=== PATIENT | female | born 1955 | race African-American/Black ===

== ENCOUNTER → 2021-08-24 14:26 | Outpatient (CLI) | payer OTHER, SELFPAY ==
--- NOTE | ~2021-08-24 | XR_ITS ---
EXAMINATION: XR knee RT min 4V DATE: 08/24/2021 16:09 INDICATION: Right knee pain. TECHNIQUE: 4 views of right knee were obtained. COMPARISON: None. FINDINGS: Bone alignment is normal. No fracture. There is mild tricompartmental osteoarthritis charac terized by marginal osteophytes. No joint space narrowing. No knee joint effusion. IMPRESSION: 1. Mild right knee osteoarthritis. Reviewed, dictated and finalized at location A.
--- NOTE | ~2021-08-24 | XR_ITS ---
XR ankle RT min 3V DATE: 08/24/2021 16:09 INDICATION: Right ankle pain TECHNIQUE: 4 views COMPARISON: None FINDINGS: There is mild plantar and posterior calcaneal enthesopathy without associated erosive doran e or periostitis. No fracture or dislocation of the ankle or disruption of the ankle mortise. No periosteal reaction or bone destruction. IMPRESSION: Plantar and posterior calcaneal enthesopathy Reviewed, dictated and finalized at location A.
== END ==
PROVIDERS: PCP Family Medicine; Visit Provider Physician Assistant
DX: M25.561 Pain in right knee (principal); M25.571 Pain in right ankle and joints of right foot; M17.11 Unilateral primary osteoarthritis, right knee; M77.31 Calcaneal spur, right foot
CPT/HCPCS: 73564; 73610

== ENCOUNTER → 2022-09-03 08:34 | Outpatient (CLI) | payer MEDICARE, OTHER, SELFPAY ==
--- NOTE | ~2022-09-03 | XR_ITS ---
XR knee LT 3V 09/03/2022 09:38 Indication: Left knee pain Procedure: 3 views left knee Comparison: No prior studies for comparison. Findings: There is mild osteoarthritis of the left knee. No acute fracture or traumatic malalignment. No significant joint effusion. No focal soft tissue abnormality. No foreign bodies. Impression: 1: Mild osteoarthritis of the left knee. Reviewed, dictated and finalized at location L. Impression: 1: Mild osteoarthritis of the left knee.
== END ==
PROVIDERS: PCP Family Medicine; Visit Provider Physician Assistant
DX: M17.12 Unilateral primary osteoarthritis, left knee (principal)
CPT/HCPCS: 73562

== ENCOUNTER 2022-09-03 09:51 | Outpatient (CLI) | payer MEDICARE, SELFPAY ==
[2022-09-03 10:07] LABS: Basophils Percent Auto 0.3 % (0.2-1.2); Eosinophils Absolute Auto 0.2 K/mm3 (0-0.3); Eosinophils Percent Auto 3.3 % (0-4.4); Hematocrit 39.5 % (37.0-47.0); Hemoglobin 12.1 g/dL (12.0-15.0); Immature Granulocyte Absolute 0.01 K/mm3 (0.00-0.031); Immature Granulocyte Percent A 0.2 % (0-0.5); Lymphocytes Absolute Auto 1.83 K/mm3 (0.9-3.2); Lymphocytes Percent Auto 29.2 % (18.3-44.2); Mean Corpuscular HGB Conc 30.6 g/dl (32-36); Mean Corpuscular Hemoglobin 22.4 pg (26-34); Mean Platelet Volume 9.7 fl (7.4-10.4); Monocytes Absolute Auto 0.6 K/mm3 (0.1-0.6); Monocytes Percent Auto 9.1 % (2.6-8.5); Neutrophils Absolute Auto 3.6 K/mm3 (1.3-6.7); Neutrophils Percent Auto 57.9 % (45.5-73.1); Platelet Count Result 304 k/mm3 (150-375); Red Blood Count 5.41 M/mm3 (4.2-5.4); White Blood Count 6.3 K/mm3 (4.5-10.0)
[2022-09-03 10:29] LABS: Appearance Urine Cloudy (Clear); Bacteria Urine Rare /hpf; Bilirubin Urine Negative (Negative); Blood Urine Negative (Negative); Color Urine Yellow (Yellow); Glucose Urine UA Negative (Negative); Ketones Urine Negative (Negative); Leukocyte Esterase Ur Trace LEU/UL (NEGATIVE); Nitrate Urine Negative (Negative); Non Pathogenic Casts 0-2; Protein Urine Negative (Negative); RBC Urine 0-2 /hpf (0-2); Specific Grav Ur 1.021 (1.001-1.035); Squamous Epithelial Cell Urine Few /hpf (Few); Urobilinogen Urine 0.2 mg/dL (<2.0); WBC Urine 0-5 /hpf (0-3); pH Urine 7.5 (5.0-9.0)
[2022-09-03 10:31] LABS: Add Urine Microscopic? YES
[2022-09-03 10:31] LABS: Alanine Aminotransferase 20 U/L (6-35); Albumin Level 4.4 g/dL (3.5-5.1); Alkaline Phosphatase 64 U/L (38-126); Anion Gap 6 mmol/L (8-16); Aspartate Amino Transferase 23 U/L (14-36); Bilirubin,Total 0.6 mg/dL (0.2-1.3); Blood Urea Nitrogen 16 mg/dL (7-17); Calcium 9.2 mg/dL (8.4-10.2); Carbon Dioxide 32 mmol/L (22-30); Chloride 101 mmol/L (98-107); Cholesterol 191 mg/dL (0-200); Estimated Glomerular Filt Rate > 60; Glucose 94 mg/dL (65-110); HDL Direct 59 mg/dL; Potassium 4.6 mmol/L (3.4-5.0); Sodium 139 mmol/L (137-145); Triglycerides 52 mg/dL (<150)
[2022-09-03 10:42] LABS: LDL Cholesterol Direct 85 mg/dL
[2022-09-03 10:51] LABS: Platelet Estimate Adequate (Adequate)
[2022-09-03 10:52] LABS: Anisocytosis 1+ (NORMAL); Hypochromasia 1+ (NORMAL); Microcytosis 1+ (NORMAL); Schistocytes None Seen (NORMAL)
== END 2022-09-03 09:52 | disposition home or self-care (01) ==
PROVIDERS: PCP Family Medicine; Visit Provider Physician Assistant
DX: N32.81 Overactive bladder (principal); Z00.00 Encounter for general adult medical examination without abnormal findings
CPT/HCPCS: 36415; 80053; 80061; 81001; 84443; 85025

== ENCOUNTER 2022-12-03 02:30 | Day surgery (SDC) | payer MEDICARE, SELFPAY ==
[2022-11-21 08:00] VITALS: BMI 41.4
[2022-12-03 06:49] VITALS: BP 143/80; PULSE 72; RESP 18; TEMP 36.3; O2SAT 100
--- NOTE | 2022-12-03 07:00 | WPDANESEPPF ---
Anes - Initial Pre Proc Eval Procedure: Operation Date: 12/03/22 08:00 Proposed Procedures p Colonoscopy - Arslan Bernal MD Date/Time: 12/03/22 07:00 Surgeon: Arslan Bernal MD Pre Op Diagnosis: hx colon polyps, Patient Data Age: 67 Gender: F Height: 1.7 m Weight: 112.4 kg Last Vital Signs Temp 36.3 C L 12/03/22 06:49 Pulse 72 12/03/22 06:49 Resp 18 12/03/22 06:49 BP 143/80 H 12/03/22 06:49 Pulse Ox 100 12/03/22 06:49 O2 Del Method Room Air 12/03/22 06:49 Allergies Allergy/AdvReac Type Severity Reaction Status Date / Time latex Allergy Mild LATEX Verified 12/03/22 06:46 POWDER: ITCHING/REDNESS/BLISTERS amlodipine AdvReac Unknown headaches, Verified 12/03/22 06:46 SOB Home Medications Medication Instructions Recorded Confirmed Type aspirin 81 mg tablet,delayed 81 mg PO DAILY #30 tabs 07/29/19 12/03/22 Rx release tramadol 50 mg tablet 25 mg PO Q12H PRN pain #30 tabs 10/15/22 12/03/22 Rx hydrochlorothiazide 25 mg tablet 25 mg PO DAILY #90 tabs 10/30/22 12/03/22 Rx ibuprofen 600 mg tablet 600 mg PO Q6H PRN Pain 11/21/22 12/03/22 History oxybutynin chloride 5 mg 5 mg PO DAILY #30 tabs 11/29/22 12/03/22 Rx tablet,extended release 24 hr Patient hx anesthesia problems: none Family hx anesthesia problems: none Results Review: All pre-operative results and documents have been reviewed as part of the pre-operative evaluation. [facility] Past Medical History Medical History (Updated 12/03/22 @ 07:01 by Conrado Alegria MD) Cataract Essential hypertension History of stroke OAB (overactive bladder) Personal history of malignant neoplasm of breast Pre-operative clearance Urinary frequency Wellness examination Surgical History Surgical History History of mastectomy Family History Family History Mother Family history of osteoarthritis Father Family history of osteoarthritis Other Diabetes mellitus Social History Social History Smoking status: Never smoker Second hand tobacco smoke exposure: No Alcohol intake: never Substance use: never Substance use type: does not use Living arrangements: alone Occupation/Education: occupation Gender identity (if verbalized by the patient): Female Sexual Orientation (if Verbalized by the Patient): Straight or Heterosexual Spiritual care concerns: No Anes - Eval Final PreProcedure Day of Procedure 12/03/22 07:00 Patient weight: obese Heart: regular rate and rhythm Lungs: clear to auscultation and normal air movement Airway: Mallampati scale class II Neurological: alert and oriented Last oral intake: >/= 8 hours ASA classification: III Emergent: no Anesthetic plan: proceed Anesthesia type and monitoring: general GIVS Results Review: All pre-operative results and documents have been reviewed as part of the pre-operative evaluation. Informed Consent: The patient's anesthetic plan and its attendant risks and benefits were discussed with the patient/family/POA. Questions were solicited and answers provided to the satisfaction of the patient/family/POA.
[2022-12-03] MEDS: LACTATED RINGERS 1,000 ML 150 ML IV CONT (07:26)
--- NOTE | 2022-12-03 07:52 | PM.HPGS ---
History of Present Illness History of Present Illness Consent: Risks, benefits, and alternatives have been discussed and questions answered. Patient agrees to proceed with procedure. Chief complaint: hx colon polyps, Narrative: Val Moscoso is a 67 year old female with colon polyp in 2017 Review of Systems Constitutional: Constitutional: Denies headache(s) and Denies weakness Eyes: Eyes: Denies blurry vision ENT: Reports Normal hearing present, Denies headache(s) and Denies neck pain Cardiovascular: Cardiovascular: Denies chest pain and Denies dyspnea Respiratory: Respiratory: Denies dyspnea Gastrointestinal: Gastrointestinal: Reports no additional gastrointestinal complaints Genitourinary: Genitourinary: Denies dysuria Musculoskeletal: Musculoskeletal: Denies neck pain Integumentary/Breasts: Skin/Breast: Denies dry skin Neurologic: Reports Normal hearing present, Denies headache(s) and Denies weakness Psychiatric: Psychiatric: Denies anxiety Endocrine: Endocrine: Denies change in body appearance Hematologic/Lymphatic: Hematologic/Lymphatic: Denies easy bleeding Allergic/Immunologic: Allergic/Immunologic: Denies urticaria PMFSH Past Medical History Medical History (Updated 12/03/22 @ 07:53 by Arslan Bernal MD) Cataract Colon polyp Essential hypertension History of stroke OAB (overactive bladder) Personal history of malignant neoplasm of breast Pre-operative clearance Urinary frequency Wellness examination Surgical History Surgical History History of mastectomy Family History Family History Mother Family history of osteoarthritis Father Family history of osteoarthritis Other Diabetes mellitus Social History Social History Smoking status: Never smoker Second hand tobacco smoke exposure: No Alcohol intake: never Substance use: never Substance use type: does not use Living arrangements: alone Occupation/Education: occupation Gender identity (if verbalized by the patient): Female Sexual Orientation (if Verbalized by the Patient): Straight or Heterosexual Spiritual care concerns: No Meds Home Medications and Allergies Home Medications Medication Instructions Recorded Confirmed Type aspirin 81 mg tablet,delayed 81 mg PO DAILY #30 tabs 07/29/19 12/03/22 Rx release tramadol 50 mg tablet 25 mg PO Q12H PRN pain #30 tabs 10/15/22 12/03/22 Rx hydrochlorothiazide 25 mg tablet 25 mg PO DAILY #90 tabs 10/30/22 12/03/22 Rx ibuprofen 600 mg tablet 600 mg PO Q6H PRN Pain 11/21/22 12/03/22 History oxybutynin chloride 5 mg 5 mg PO DAILY #30 tabs 11/29/22 12/03/22 Rx tablet,extended release 24 hr Allergies Allergy/AdvReac Type Severity Reaction Status Date / Time latex Allergy Mild LATEX Verified 12/03/22 06:46 POWDER: ITCHING/REDNESS/BLISTERS amlodipine AdvReac Unknown headaches, Verified 12/03/22 06:46 SOB Vital Signs Vital Signs - 24 hr 12/03/22 06:49 Temperature 97.4 F L Pulse Rate 72 Respiratory Rate 18 Blood Pressure 143/80 H Pulse Oximetry 100 Oxygen Delivery Room Air Exam Const: General: comfortable and no acute distress HENMT: Face/Nose/Sinus: Normal nares present Eyes: General: appearance normal, both eyes and all related structures Neck: Neck: no JVD Resp: Auscultation: clear to auscultation bilaterally Cardio: Rate: regular rate Rhythm: regular rhythm GI: Inspection: non-distended GI Palp: Yes Soft to palpation Skin: General skin exam: normal color Neuro: General: gait normal Speech: normal speech Extrem: General: normal to inspection Psych: Mental Status: mental status grossly normal Assessment and Plan Assessment and plan (1) Colon polyp: Code(s): K63.5 - Polyp of colon Status: Acute Assess
[2022-12-03 08:11] VITALS: BP 129/71; PULSE 70; RESP 20; O2SAT 100
[2022-12-03 08:21] VITALS: BP 115/64; PULSE 64; RESP 20; O2SAT 98
[2022-12-03 08:31] VITALS: BP 130/66; PULSE 51; RESP 16; O2SAT 100
== END 2022-12-03 08:41 | disposition home or self-care (01) ==
PROVIDERS: PCP Family Medicine; Visit Provider Internal Medicine Gastroenterology
PROC: 0DJD8ZZ Inspection of Lower Intestinal Tract, Via Natural or Artificial Opening Endoscopic (ICD-10-PCS; CPT 45378; principal; 2022-12-03 08:00)
DX: Z12.11 Encounter for screening for malignant neoplasm of colon (principal); D12.8 Benign neoplasm of rectum; K64.8 Other hemorrhoids; I10 Essential (primary) hypertension; N32.81 Overactive bladder; Z86.73 Personal history of transient ischemic attack (TIA), and cerebral infarction without residual deficits; Z85.3 Personal history of malignant neoplasm of breast; Z79.82 Long term (current) use of aspirin; E66.9 Obesity, unspecified; Z68.38 Body mass index [BMI] 38.0-38.9, adult
CPT/HCPCS: 45385; 88305; J2704; J7120

== ENCOUNTER → 2022-12-31 09:47 | Outpatient (CLI) | payer MEDICARE, SELFPAY ==
--- NOTE | ~2022-12-31 | MR_ITS ---
EXAMINATION: MR knee LT wo con DATE: 12/31/2022 10:20 INDICATION: Left knee pain TECHNIQUE: Magnetic resonance imaging (MRI) of the left knee was performed without intravenous contra st. Sequences included coronal PD-weighted FSE, coronal PD-weighted FS FSE, sagittal T2-weighted FSE , sagittal PD-weighted FS FSE and axial PD weighted fat saturated FSE. COMPARISON: Left knee radiographs dated 09/03/2022 FINDINGS: Medial compartment: Complex tear of the body and posterior horn of the medial meniscus. There is medial extrusion of the medial meniscal body with chondral surface regularity along the medial tibial plateau and weightbeari ng medial femoral condyle resulting >50% joint space narrowing but without underlying cortical irregu larity or degenerative subchondral changes. Lateral compartment: Lateral meniscus is normal. Articular cartilage is normal. Patellofemoral compartment: There is some deep chondral fissuring with underlying cortical irregularity along the inferior margin of the medial trochlea. Ligaments and tendons: Anterior and posterior cruciate ligaments are normal. The medial collateral ligament and fibular aramis ateral ligament complex are normal. Mild distal quadriceps enthesopathy. Patellar tendon is normal. T he visualized medial and lateral hamstring tendons as well as the iliotibial band are normal. Fluid: Moderate to large left knee joint effusion with mild synovitis at the suprapatellar pouch. Small Bake r's cyst. No loose osteochondral bodies identified. Osseous/other: Normal marrow signal. No fracture or pathologic marrow replacing process. IMPRESSION: 1. Complex medial meniscal tear. 2. Mild to moderate osteoarthritis with extensive moderate grade chondromalacia medial compartment an d mild patellofemoral osteoarthritis with small region of high-grade chondral malacia the medial troc hlea. 3. Moderate to large left knee joint effusion and small Neely's cyst. Reviewed, dictated and finalized at location L. IMPRESSION: 1. Complex medial meniscal tear. 2. Mild to moderate osteoarthritis with extensive moderate grade chondromalacia medial compartment and mild patellofemoral osteoarthritis with small region of high-grade chondral malacia the medial trochlea. 3. Moderate to large left knee joint effusion and small Neely's cyst.
== END ==
PROVIDERS: PCP Orthopaedic Surgery; Visit Provider Orthopaedic Surgery
DX: S83.232A Complex tear of medial meniscus, current injury, left knee, initial encounter (principal); M17.12 Unilateral primary osteoarthritis, left knee; M22.42 Chondromalacia patellae, left knee; M71.22 Synovial cyst of popliteal space [Baker], left knee; M25.462 Effusion, left knee; T14.90XA Injury, unspecified, initial encounter
CPT/HCPCS: 73721

== ENCOUNTER → 2023-07-08 10:11 | Outpatient (CLI) | payer MEDICARE, SELFPAY ==
--- NOTE | ~2023-07-08 | XR_ITS ---
Clinical Indication: Cough PA and lateral views of the chest: Comparison: 03/02/2010 Findings: The lungs are clear, without evidence of focal consolidation or pleural effusion. Cardiome diastinal silhouette is stable. Bones and soft tissues are unremarkable. Impression: Clear lungs. Reviewed, dictated and finalized at location . 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
== END ==
PROVIDERS: PCP Physician Assistant; Visit Provider Physician Assistant
DX: R05.9 Cough, unspecified (principal); R06.2 Wheezing
CPT/HCPCS: 71046

== ENCOUNTER → 2023-07-28 15:36 | Outpatient (CLI) | payer MEDICARE, SELFPAY ==
--- NOTE | ~2023-07-28 | MM_ITS ---
EXAMINATION: MM screening daylin LT w isidoro HISTORY: Screening mammogram TECHNIQUE: Craniocaudal and mediolateral oblique 3-D tomosynthesis images were obtained and synthetic 2-D images were generated. CAD analysis was submitted and interpreted. COMPARISON: 12/17/2016 left mammogram BREAST PARENCHYMAL COMPOSITION: There are scattered areas of fibroglandular density. FINDINGS: Relatively stable multiple left axillary tail and axillary lymph nodes. Scattered occasiona l benign calcifications. There is no evidence of suspicious mass, calcification, or architectural dis tortion to suggest malignancy in either breast. There has been no suspicious interval change. IMPRESSION: 1. No mammographic evidence of malignancy. 2. Recommend routine screening mammography in one year. BI-RADS Category 2: Benign finding(s). Reviewed, dictated and finalized at location A. 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
== END ==
PROVIDERS: PCP Physician Assistant; Visit Provider Physician Assistant
DX: Z12.31 Encounter for screening mammogram for malignant neoplasm of breast (principal)
CPT/HCPCS: 77063; 77067

== ENCOUNTER 2023-12-04 10:36 | Outpatient (CLI) | payer MEDICARE, SELFPAY ==
[2023-12-04 11:12] LABS: Basophils Percent Auto 0.2 % (0.2-1.2); Eosinophils Absolute Auto 0.1 K/mm3 (0-0.3); Eosinophils Percent Auto 2.8 % (0-4.4); Hematocrit 40.9 % (37.0-47.0); Hemoglobin 12.8 g/dL (12.0-15.0); Immature Granulocyte Absolute 0.01 K/mm3 (0.00-0.031); Immature Granulocyte Percent A 0.2 % (0-0.5); Lymphocytes Absolute Auto 1.48 K/mm3 (0.9-3.2); Mean Corpuscular HGB Conc 31.3 g/dl (32-36); Mean Corpuscular Hemoglobin 22.7 pg (26-34); Mean Corpuscular Volume 72.6 fl (80-100); Monocytes Absolute Auto 0.4 K/mm3 (0.1-0.6); Monocytes Percent Auto 8.3 % (2.6-8.5); Neutrophils Absolute Auto 2.9 K/mm3 (1.3-6.7); Neutrophils Percent Auto 58.5 % (45.5-73.1); Platelet Count Result 253 k/mm3 (150-375); Red Blood Count 5.63 M/mm3 (4.2-5.4); White Blood Count 4.9 K/mm3 (4.5-10.0)
[2023-12-04 11:28] LABS: Alanine Aminotransferase 15 U/L (6-35); Albumin Level 4.3 g/dL (3.5-5.1); Alkaline Phosphatase 63 U/L (38-126); Anion Gap 9 mmol/L (4-12); Aspartate Amino Transferase 23 U/L (14-36); Bilirubin,Total 0.7 mg/dL (0.2-1.3); Blood Urea Nitrogen 21 mg/dL (7-17); Calcium 9.2 mg/dL (8.4-10.2); Carbon Dioxide 31 mmol/L (22-30); Chloride 99 mmol/L (98-107); Cholesterol 207 mg/dL (0-200); Estimated Glomerular Filt Rate > 60; Glucose 92 mg/dL (65-110); HDL Direct 77 mg/dL; Potassium 4.3 mmol/L (3.4-5.0); Sodium 139 mmol/L (137-145); Triglycerides 66 mg/dL (<150)
[2023-12-04 11:39] LABS: LDL Cholesterol Direct 100 mg/dL
== END 2023-12-04 10:37 | disposition home or self-care (01) ==
PROVIDERS: PCP Family Medicine; Visit Provider Physician Assistant
DX: E66.01 Morbid (severe) obesity due to excess calories (principal); I10 Essential (primary) hypertension; N32.81 Overactive bladder; Z00.00 Encounter for general adult medical examination without abnormal findings; Z85.3 Personal history of malignant neoplasm of breast; Z86.73 Personal history of transient ischemic attack (TIA), and cerebral infarction without residual deficits
CPT/HCPCS: 36415; 80053; 80061; 84443; 85025

== ENCOUNTER 2023-12-20 10:32 | Observation (INO) | payer MEDICARE, SELFPAY ==
[2023-12-20] VITALS (12 sets, daily range): BP systolic 102–154; BP diastolic 53–93; PULSE 50–83; RESP 12–18; TEMP 36.5–36.9; O2SAT 99–100; BMI 41.2
--- NOTE | ~2023-12-20 | MR_ITS ---
MR brain/brain stem wo con Ordering provider: Alessandro Cardenas MD History: 68 years Female with . slurred speech, tingling left arm . Comparison: CT head performed yesterday. Technique: MRI brain was performed without contrast. FINDINGS: BONES: Normal. CRANIOCERVICAL JUNCTION: normal. PITUITARY: Normal. MAJOR INTRACRANIAL VESSELS: Normal flow void. OPTIC NERVES AND CRANIAL NERVES VII AND VIII COMPLEXES: Grossly normal. BRAIN PARENCHYMA AND CSF SPACES: Few scattered foci of T2 and FLAIR hyperintense signal areas suggest lilly of deep white matter ischemic changes versus white matter disease. The cerebellum is normal. No a cute or chronic intracranial hemorrhage. No extra axial fluid collections. Diffusion weighted and ADC mapping images reveal focal area of diffusion restriction in the left inferior pontine suggestive o f acute lacunar infarct.. No midline shift or mass effect. PARANASAL SINUSES: Normal. MASTOIDS: Normal SUPERFICIAL/SURROUNDING SOFT TISSUES: Normal. IMPRESSION: Highly suggestive acute lacunar infarct in the left inferior estelle. Clinical correlation advised. Few scattered T2 and FLAIR hyperintense signal areas in the supratentorial area suggestive of deep wh ite matter ischemic changes versus white matter disease. Physician: Alessandro Cardenas MD Was notified with the result of the patient at 3:19 PM on December 21, 2023. Reviewed, dictated and finalized at location A. IMPRESSION: Highly suggestive acute lacunar infarct in the left inferior estelle. Clinical cor relation advised. Few scattered T2 and FLAIR hyperintense signal areas in the supratentorial area suggestive of deep white matter ischemic changes versus white matter disease. Physician: Alessandro Cardenas MD Was notified with the result of the patient at 3:19 PM on December 21, 2023.
--- NOTE | ~2023-12-20 | XR_ITS ---
EXAMINATION: XR chest 1V 12/20/2023 12:51 INDICATION: Chest pain PROCEDURE: PA view of the chest COMPARISON: 07/08/2023 FINDINGS: The lungs are clear. The cardiomediastinal silhouette is within normal limits. There are no pleural effusions. There is no pneumothorax suspected. IMPRESSION: 1: NO ACUTE CARDIOPULMONARY DISEASE. Reviewed, dictated and finalized at location B.
--- NOTE | ~2023-12-20 | CT_ITS ---
EXAMINATION: CT BRAIN W/O DATE: 12/20/2023 12:45 INDICATION: History of TIA. CVA. Left arm tingling. TECHNIQUE: Computed tomography (CT) of the head was performed without intravenous contrast. The dose- length product was 605.33 mGy-cm. Automated exposure control and iterative reconstruction technique were employed. COMPARISON: CT dated 01/04/2013 FINDINGS: Normal brain parenchymal volume for age. Normal lópez-white differentiation. No acute intrac ranial hemorrhage, infarction, mass or mass effect. There are scattered mild periventricular and subc ortical white matter changes, most likely related to small vessel ischemic disease (microangiopathy). No ventriculomegaly or midline shift. Midline sagittal images demonstrate a normal corpus callosum, c raniovertebral junction and sella turcica. Basilar cisterns are patent. Paranasal sinuses and mastoids are pneumatized. No depressed skull fractures. IMPRESSION: 1. No acute intracranial abnormality. Reviewed, dictated and finalized at location B.
--- NOTE | ~2023-12-20 | CT_ITS ---
CTA brain carotid Ordering provider: Ricardo Cristobal MD History: . LUE tingling . Comparison: None. Technique: CT angiogram head and neck was performed following timed intravenous injection of contrast . Thin slice axial images and reformatted coronal images were obtained. Three dimensional reformatted images of the brain were also obtained using a [employer] workstation. Radiation reduction technique ut ilized. DLP is 1030.95 mGy-cm. 100 mL Omnipaque 350 was given IV. FINDINGS: HEAD: --ANTERIOR AND MIDDLE CEREBRAL ARTERIES AND BRANCHES: Normal caliber and contour. --INTERNAL CAROTID ARTERIES: Mild atheromatous disease but no significant stenosis. No occlusion. --BASILAR ARTERY AND BRANCHES: Normal caliber and contour. No atheromatous disease. --POSTERIOR CEREBRAL ARTERIES: Normal caliber and contour --POSTERIOR COMMUNICATING ARTERIES: Both are visualized. --ANEURYSM: None visualized. --BRAIN: Please refer to report of CT head performed the same day. --BONES AND SUPERFICIAL SOFT TISSUES: Please refer to report of CT head performed the same day. --PARANASAL SINUSES AND MASTOIDS: Please refer to report of CT head done the same day. NECK: --RIGHT CERVICAL CAROTID SYSTEM: Normal caliber and contour. Percent stenosis per NASCET criteria is 0%. No carotid dissection. Otherwise, no significant atheromatous disease or stenosis of the cervica l carotid system. --LEFT CERVICAL CAROTID SYSTEM: Normal caliber and contour. Percent stenosis per NASCET criteria is 0%. No carotid dissection. Otherwise, no significant atheromatous disease or stenosis of the cervical carotid system. --VERTEBRAL ARTERIES: Normal caliber and contour. --VISUALIZED AORTIC ARCH AND BRANCHING VESSELS: Normal caliber and contour. No significant atheromato us disease. Bovine origin of both carotid arteries is seen. --SOFT TISSUES: Multiple thyroid nodules. --CERVICAL SPINE: Age appropriate degenerative changes. IMPRESSION: 1. Normal CTA head and neck. Percent stenosis per NASCET criteria is 0%. Reviewed, dictated and finalized at location A.
--- NOTE | ~2023-12-20 | MR_ITS ---
MRI of the cervical spine Clinical History: Infarct Technique: Axial T2-weighted and gradient images, and sagittal T1-weighted, T2-weighted, and STIR brendan ges were acquired. Findings: There is straightening of the normal cervical lordosis. No fracture or sublocation seen. No suspicious bone marrow signal reality seen. At C2-C3, there is no disc bulge or herniation. No spinal canal stenosis, cord compression, or neural foraminal narrowing. At C3-C4, there is mild degenerative disc narrowing. There is minimal disc bulge. Probable mild canal stenosis without anita cord compression. There is mild bilateral neural foraminal narrowing with mil d facet arthropathy. At C4-C5, there is moderate degenerative disc narrowing. There is mild disc ossify complex with mild canal stenosis and flattening of the ventral cord. Possible minimal bilateral neural foraminal narrow ing. At C5-C6, there is disc osteophyte complex. There is mild canal stenosis without anita cord compressi on. There is right neural foraminal narrowing. Left neural foramen preserved. At C6-C7, there is minimal disc bulge. No spinal canal stenosis, cord compression, or definite neural foraminal narrowing. No abnormal signal seen in the spinal cord. Paravertebral soft tissues are unremarkable. Impression: Moderate degenerative spondylosis, as above. Reviewed, dictated and finalized at location . Impression: Moderate degenerative spondylosis, as above.
--- NOTE | ~2023-12-20 | XR_ITS ---
XR shoulder LT min 2V 12/20/2023 12:51 INDICATION: Left shoulder pain PROCEDURE: 4 views left shoulder COMPARISON: No prior studies for comparison. FINDINGS: Fracture, dislocation or subluxation is not identified. The soft tissues appear within norm al limits. No foreign bodies are identified. IMPRESSION: 1: NO ACUTE BONE OR JOINT ABNORMALITY IDENTIFIED. Reviewed, dictated and finalized at location B.
--- NOTE | 2023-12-20 12:19 | ECG_ITS ---
Test Date: 2023-12-20 13:31:52 Measurements Intervals [place] Rate: 63 P: 53 NE: 237 QRS: -2 QRSD: 92 T: -3 QT: 431 QTc: 443 Interpretive Statements SINUS RHYTHM WITH SINUS ARRHYTHMIA WITH FIRST DEGREE AV BLOCK BORDERLINE ST-T WAVE ABNORMALITY- INFERIOR LEADS BORDERLINE ECG No previous ECG available for comparison Electronically Signed On 12-20-2023 19:31:44 CDT by Mohan Zhao D.O.
[2023-12-20] MEDS: ACETAMINOPHEN 500 MG TABLET 1000 MG PO (13:00)
[2023-12-20] MEDS: SODIUM CHLORIDE 0.9% IV 1,000 ML 999 ML IV CONT (13:00)
[2023-12-20 13:16] LABS: Basophils Percent Auto 0.3 % (0.2-1.2); Eosinophils Absolute Auto 0.2 K/mm3 (0-0.3); Eosinophils Percent Auto 3.6 % (0-4.4); Hematocrit 40.7 % (37.0-47.0); Hemoglobin 12.6 g/dL (12.0-15.0); Immature Granulocyte Absolute 0.02 K/mm3 (0.00-0.031); Immature Granulocyte Percent A 0.3 % (0-0.5); Lymphocytes Absolute Auto 1.94 K/mm3 (0.9-3.2); Lymphocytes Percent Auto 31.9 % (18.3-44.2); Mean Corpuscular Hemoglobin 22.6 pg (26-34); Mean Corpuscular Volume 73.1 fl (80-100); Mean Platelet Volume 9.7 fl (7.4-10.4); Monocytes Absolute Auto 0.6 K/mm3 (0.1-0.6); Monocytes Percent Auto 9.4 % (2.6-8.5); Neutrophils Absolute Auto 3.3 K/mm3 (1.3-6.7); Neutrophils Percent Auto 54.5 % (45.5-73.1); Platelet Count Result 273 k/mm3 (150-375); Red Blood Count 5.57 M/mm3 (4.2-5.4); Red Cell Distribution Width 16.7 % (11.5-14.5); White Blood Count 6.1 K/mm3 (4.5-10.0)
[2023-12-20 13:25] LABS: Prothrombin Time 13.5 Seconds (11.1-14.7)
[2023-12-20 13:26] LABS: Partial Thromboplastin Time 25.8 Seconds (22.3-36.8)
[2023-12-20 13:30] LABS: Alanine Aminotransferase 15 U/L (6-35); Albumin Level 4.5 g/dL (3.5-5.1); Alkaline Phosphatase 59 U/L (38-126); Anion Gap 9 mmol/L (4-12); Aspartate Amino Transferase 26 U/L (14-36); Bilirubin,Total 0.7 mg/dL (0.2-1.3); Blood Urea Nitrogen 15 mg/dL (7-17); Calcium 8.8 mg/dL (8.4-10.2); Carbon Dioxide 31 mmol/L (22-30); Chloride 98 mmol/L (98-107); Estimated CRCL calculation 87 ml/min; Estimated Glomerular Filt Rate > 60; Glucose 94 mg/dL (65-110); Potassium 3.4 mmol/L (3.4-5.0); Sodium 138 mmol/L (137-145)
[2023-12-20 13:41] LABS: Troponin I < 0.012 ng/mL (0.000-0.034)
[2023-12-20] MEDS: ASPIRIN 325 MG TABLET PO (14:29)
--- NOTE | 2023-12-20 15:53 | ED.EXTPRO ---
HPI - Extremity Problem General Chief complaint: Extremity Problem,Nontraumatic Stated complaint: L arm pain/tingling since 0300 Time Seen by Provider: 12/20/23 11:31 History of Present Illness HPI Narrative: This is a 68-year-old female with a past medical history including breast cancer and prior stroke/TIA with no residual deficits. Today patient presents to the emergency room with a chief complaint of sudden onset left upper extremity tingling sensation she describes as a numbness and tingling that began in her neck and radiates down to her fingertips. Patient states that this occurred about 3:00 a.m. over 8 hours prior to her initial arrival to the ED. patient states that she was in bed watching TV when she knows the sensation that started randomly. The sensations are without any traumatic injuries or any kind of falls. She states she had a similar sensation when she found her last stroke. She is not taking any blood thinner medications and is not on any anticoagulation presently aside from a baby aspirin. Denies any nausea, vomiting, vision changes, headache, chest pain, shortness of breath, extremity swelling, weakness, fatigue or syncope. Related Data Home Medications Medication Instructions Recorded Confirmed ibuprofen 600 mg tablet 600 mg PO Q6H PRN Pain 11/21/22 12/17/23 Allergies Allergy/AdvReac Type Severity Reaction Status Date / Time latex Allergy Mild LATEX Verified 12/04/23 09:35 POWDER: ITCHING/REDNESS/BLISTERS amlodipine AdvReac Unknown headaches, Verified 12/04/23 09:35 SOB Review of Systems Review of Systems: As reviewed above in the HPI [facility] Past Medical History Medical History Cataract Colon polyp Essential hypertension History of stroke Left knee pain OAB (overactive bladder) Personal history of malignant neoplasm of breast Pre-operative clearance Urinary frequency Wellness examination Surgical History Surgical History History of colonoscopy History of mastectomy Family History Family History Mother Family history of osteoarthritis Father Family history of osteoarthritis Hypertension Other Diabetes mellitus Social History Social History Smoking status: Never smoker Second hand tobacco smoke exposure: No Alcohol intake: never Substance use: never Substance use type: does not use Living arrangements: alone Occupation/Education: occupation Additional occupation/education comments: [employer] Gender identity (if verbalized by the patient): Female Sexual Orientation (if Verbalized by the Patient): Straight or Heterosexual Spiritual care concerns: No Exam Narrative: GENERAL: [Well-appearing, well-nourished, and in no acute distress.] HEAD: [Normocephalic, atraumatic.] EYES: [PERRLA and EOMI.] ENT: Nares clear, no rhinorrhea or epistaxis. Mucous membranes moist. NECK: Supple. CHEST: [Clear to auscultation. No respiratory distress.] HEART: [Regular rate and rhythm]. No murmur heard. [Normal peripheral pulses.] ABDOMEN: [Soft, nondistended], [nontender], [No rigidity or guarding] EXTREMITIES: Normal range of motion. [No edema.] SKIN: Warm, dry, no rash. NEURO: Subjective paresthesias in the left upper extremity without any weakness in the upper extremities. Marketing Development Specialist strength 5/5, flexion and extension at the elbows and shoulders is 5/5 bilaterally. Ambulating unassisted without any ataxia. Extraocular movements are full. Peripheral visual durant are full. NIH Stroke Scale of 1 for subjective paresthesias.. Alert and oriented [x3.] PSYCH: [Normal mood and affect.] Course Vital Signs Vital signs: Vital Signs Pulse Rate 51 L 12/20/23 13:25 Respiratory Rate 12 07/2
--- NOTE | 2023-12-20 17:47 | ADMGEN ---
This patient, Val Moscoso, was admitted to Medical Room 258-. Patient/family oriented to hospital policies and general routines including ID bracelet, bed and alarms, visiting hours, pain management, procedures, bathroom and other care routines, personal items, smoking policy, room service/diet, and visiting hours. Information on how to activate the Rapid Response Team has been discussed. Patient/Family are encouraged to report perceived risks to care and to ask questions if they do not understand what they are told or what they should do.
[2023-12-20] MEDS: ACETAMINOPHEN 325 MG TABLET 650 MG PO (18:35)
--- NOTE | 2023-12-20 23:00 | PM.IMHP ---
H&P: HPI History of Present Illness Date/Time: 12/20/23 23:00 Chief Complaint: Left arm numbness and tingling. Narrative: This is a very pleasant 68-year-old female with history of transient ischemic attack, hypertension, overactive bladder, and arthritis who presented to the emergency department for evaluation of left arm numbness and tingling. The patient provides the following history. The patient's little over a week ago and she has not been sleeping well. At about 02:00 this morning she was watching television when she developed fairly sudden onset of numbness and tingling in the left arm radiating down to the fingertips. She also noticed some stuttering and difficulty speaking while talking on the phone with a family member several hours thereafter. Due to ongoing symptoms he decided to come in for evaluation. At the time my evaluation she still has mild paresthesias but they have improved and her speech is back to normal. She denies vertigo, vision changes, facial droop, difficulty swallowing, focal weakness, chest pain, palpitations, and sensations of racing heart. She also denies fall and traumatic injuries of any kind. In the ED: Blood pressure was 144/76 on arrival and she was in a sinus rhythm with sinus arrhythmia. Labs are pretty unremarkable though her MCV was low at 73.1. Head CT showed no acute intracranial abnormality and CT of the head and neck was normal. Chest x-ray showed no acute cardiopulmonary disease. Left shoulder x-ray showed no abnormalities. She was given aspirin 325 mg and is admitted in this setting for further workup and neurology consultation. Review of Systems Review of Systems: 12 systems were reviewed and are negative except for as per HPI. [facility] Past Medical History Medical History (Updated 12/20/23 @ 23:35 by Gail Soto PA-C) Arthritis Cancer of right breast Colon polyp Essential hypertension Overactive bladder Surgical History Surgical History (Updated 12/20/23 @ 23:09 by Gail Soto PA-C) History of colonoscopy History of colonoscopy with polypectomy History of mastectomy History of right mastectomy Family History Family History Mother Family history of osteoarthritis Father Family history of osteoarthritis Hypertension Other Diabetes mellitus Social History Social History (Updated 12/20/23 @ 23:31 by Gail Soto PA-C) Social History: Surrogate medical decision maker: Cain Obrien, niece. Code status: Full code. Smoking status: Never smoker Second hand tobacco smoke exposure: No Alcohol intake: current Drinks per week: 2 Substance use: never Substance use type: does not use Do You Feel Safe in your Home?: Yes Lack of Transportation: No Lack of Food: Never True Current Housing: I Have Housing Concerned About Future Housing: No Difficulty Paying Gas/Electric Bills: No Difficulty Paying for Meds: No Currently Unemployed: No Education: High School Diploma/GED Difficulty w/ Childcare or Family Care: No Additional living arrangements comments: as of November 2023. Lives in [place]. Additional occupation/education comments: [employer]. Spiritual care concerns: No Meds Home Medications and Allergies Home Medications Medication Instructions Recorded Confirmed Type aspirin 81 mg tablet,delayed 81 mg PO DAILY #30 tabs 07/29/19 12/20/23 Rx release ibuprofen 600 mg tablet 600 mg PO Q6H PRN Pain 11/21/22 12/20/23 History hydrochlorothiazide 25 mg tablet 25 mg PO DAILY #90 tabs 12/04/23 12/20/23 Rx oxybutynin chloride 5 mg 5 mg PO DAILY 12/20/23 12/20/23 History tablet,extended release 24 hr Allergies Allergy/AdvReac Type Severity Reaction Status Date / Time latex Allergy Mild LATEX Verified 12/04/23 09:35 POWDER: ITCHING/REDNESS/BLISTERS amlodipine AdvReac Unknown headaches, Verified
[2023-12-21] VITALS (9 sets, daily range): BP systolic 123–144; BP diastolic 52–60; PULSE 45–76; RESP 16–18; TEMP 36.5–37; O2SAT 97
[2023-12-21] MEDS: MELATONIN 5 MG TABLET PO ×2 (00:03→20:58)
[2023-12-21 05:17] LABS: Hematocrit 35.5 % (37.0-47.0); Mean Corpuscular Hemoglobin 22.4 pg (26-34); Mean Corpuscular Volume 72.3 fl (80-100); Mean Platelet Volume 9.6 fl (7.4-10.4); Platelet Count Result 236 k/mm3 (150-375); Red Blood Count 4.91 M/mm3 (4.2-5.4); Red Cell Distribution Width 15.9 % (11.5-14.5); White Blood Count 5.1 K/mm3 (4.5-10.0)
[2023-12-21 05:32] LABS: Anion Gap 7 mmol/L (4-12); Blood Urea Nitrogen 11 mg/dL (7-17); Calcium 8.3 mg/dL (8.4-10.2); Carbon Dioxide 29 mmol/L (22-30); Chloride 100 mmol/L (98-107); Cholesterol 157 mg/dL (0-200); Estimated CRCL calculation 86 ml/min; Estimated Glomerular Filt Rate > 60; Glucose 87 mg/dL (65-110); HDL Direct 52 mg/dL; Iron 68 ug/dL (37-170); Potassium 3.1 mmol/L (3.4-5.0); Sodium 136 mmol/L (137-145); Triglycerides 77 mg/dL (<150)
[2023-12-21 05:42] LABS: Percent Iron Saturation 33 % (20-50)
[2023-12-21 05:43] LABS: LDL Cholesterol Direct 69 mg/dL
[2023-12-21 06:37] LABS: Folic Acid 8.6 ng/mL (2.76->20)
--- NOTE | 2023-12-21 08:14 | PM.IMPN ---
Progress Note: A&P Assessment and Plan (1) Arm paresthesia, left: Code(s): R20.2 - Paresthesia of skin Status: Acute (2) Transient speech disturbance: Code(s): R47.9 - Unspecified speech disturbances Status: Acute (3) Essential hypertension: Code(s): I10 - Essential (primary) hypertension Status: Acute (4) Low erythrocyte mean corpuscular volume: Code(s): R71.8 - Other abnormality of red blood cells Status: Acute Plan TIA vs acute Stroke The patient presented to the emergency department for evaluation of left upper extremity paresthesias and transient slurred and stuttering possibel TIA, CVA, and need to rule out cervical radiculopathy and musculoskeletal in etiology as she did complain of pain in the left neck and arm earlier today but that does not explain her speech disturbances pending Brain and cervical spine MRIs have been ordered, patient has claustrophobia, patient agreed to proceed MRI of brain with sedation of ativan pending echocardiogram with bubble study. Continue aspirin and check lipid panels in a.m c/w tele monitor Neurology has been consulted and their input is appreciated. Continue aspirin 81 mg daily p.o., Plavix 75 mg daily p.o. Essential hypertension Blood pressure controlled Subjective Date/time seen: 12/21/23 08:14 Interval history: I saw examined patient today, patient denies headache, focal weakness, vision change, slurred speech has resolved, patient is afebrile blood pressure stable Exam Narrative: GENERAL: Pleasant, in no acute distress. Well-nourished. - EYES: EOMI. Anicteric. - HENT: Moist mucous membranes. - LUNGS: Clear to auscultation bilaterally, no wheezing, rhonchi, or rales. - CARDIOVASCULAR: Regular rate and rhythm. No murmur. No JVD. - ABDOMEN: Soft, non-tender and non-distended. No palpable masses. - EXTREMITIES: No edema. Peripheral pulses 2+. Non-tender. - NEUROLOGIC: No focal neurological deficits. CN II-XII grossly intact. - PSYCHIATRIC: Awake, Alert and oriented x 3. Appropriate mood and affect. - SKIN: No rashes or lesions. Warm. - LYMPH: No cervical lymphadenopathy. Objective Data Vital Signs Vital Signs: Vital Signs - 24 hr 12/20/23 13:25 12/20/23 13:31 12/20/23 13:51 Temperature Pulse Rate 51 L 56 L 54 L Respiratory Rate 12 12 13 Blood Pressure 144/76 H 151/73 H 140/53 L Pulse Oximetry 100 100 100 Oxygen Delivery 12/20/23 14:01 12/20/23 14:21 12/20/23 14:31 Temperature Pulse Rate 61 63 63 Respiratory Rate 14 13 17 Blood Pressure 148/73 H 149/69 H 102/92 H Pulse Oximetry 100 100 100 Oxygen Delivery 12/20/23 15:00 12/20/23 15:11 12/20/23 17:00 Temperature Pulse Rate 78 74 50 L Respiratory Rate 15 17 16 Blood Pressure 138/93 H 139/85 154/87 H Pulse Oximetry 100 100 100 Oxygen Delivery 12/20/23 18:00 12/20/23 17:42 12/20/23 21:48 Temperature 97.7 F 98.4 F Pulse Rate 83 63 Respiratory Rate 18 18 Blood Pressure 150/69 H 130/65 Pulse Oximetry 100 99 Oxygen Delivery Room Air 12/20/23 20:00 12/20/23 21:15 12/21/23 00:04 Temperature Pulse Rate 58 L 71 Respiratory Rate Blood Pressure Pulse Oximetry Oxygen Delivery Room Air 12/21/23 04:00 12/21/23 06:00 Temperature 98.6 F Pulse Rate 45 L 52 L Respiratory Rate 16 Blood Pressure 123/52 L Pulse Oximetry 97 Oxygen Delivery Intake/Output Intake/Output: Intake & Output 12/18/23 12/19/23 12/20/23 12/21/23 23:59 23:59 23:59 23:59 Intake Total 1000 200 Balance 1000 200 Meds/Results Medications: Active Medications Generic Name Dose Route Start Last Admin Trade Name Freq PRN Reason Stop Dose Admin Acetaminophen 650 mg 12/20/23 18:10 12/20/23 18:35 Acetaminophen 325 Mg Tablet PO 650 mg Q6H PRN Administration Mild Pain (1-3) or Fever Hydrocodone Bitart/Acetaminophen 1 tab 12/20/23 18:10 Hydrocodone/Acetaminophen (*Crx) 5-325 Mg T
[2023-12-21] MEDS: ASPIRIN 81 MG ENTERIC TABLET PO (08:34)
[2023-12-21] MEDS: CLOPIDOGREL BISULFATE 75 MG TABLET PO (08:35)
[2023-12-21] MEDS: hydroCHLOROthiazide 25 MG TABLET PO (08:35)
[2023-12-21] MEDS: oxyBUTYnin CHLORIDE XL 5 MG TAB.ER.24 PO (08:35)
[2023-12-21] MEDS: LORazepam INJ (*CRX) 2 MG/ML VIAL 0.5 MG IV PUSH (13:19)
--- NOTE | 2023-12-21 13:42 | WPDNEURCNPN ---
Consult date: 12/21/23 HPI: Val Moscoso is a 68 year old female Admitted to the hospital through the emergency room with chief complaint of left upper extremity in tingling sensation and numbness originating in her cervical spine and radiating down to her finger tips with no history of trauma, she had the same symptomatology when she had the previous stroke and she was not taking any medications except the baby aspirin, she is she is taking only ibuprofen on p.r.n. basis and she is allergic to amlodipine and latex in the past she has had the hypertension, stroke, overactive bladder, malignant neoplasm of the breast, and has undergone mastectomy she is never a smoker, never alcohol intake or, initial exam in the emergency room was otherwise normal vital signs were normal CBC was normal so as the BMP and routine lab he was admitted to the hospital for the diagnosis of TIA, routine CBC was normal so as the BMP, head neck CTA was normal on shoulder x-rays normal, CT scan of the head negative PMFSH Past Medical History Medical History (Updated 12/20/23 @ 23:35 by Gail Soto PA-C) Arthritis Cancer of right breast Colon polyp Essential hypertension Overactive bladder Surgical History Surgical History (Updated 12/20/23 @ 23:09 by Gail Soto PA-C) History of colonoscopy History of colonoscopy with polypectomy History of mastectomy History of right mastectomy Family History Family History Mother Family history of osteoarthritis Father Family history of osteoarthritis Hypertension Other Diabetes mellitus Social History Social History (Updated 12/20/23 @ 23:31 by Gail Soto PA-C) Social History: Surrogate medical decision maker: Cain Obrien, niece. Code status: Full code. Smoking status: Never smoker Second hand tobacco smoke exposure: No Alcohol intake: current Drinks per week: 2 Substance use: never Substance use type: does not use Do You Feel Safe in your Home?: Yes Lack of Transportation: No Lack of Food: Never True Current Housing: I Have Housing Concerned About Future Housing: No Difficulty Paying Gas/Electric Bills: No Difficulty Paying for Meds: No Currently Unemployed: No Education: High School Diploma/GED Difficulty w/ Childcare or Family Care: No Additional living arrangements comments: as of November 2023. Lives in [place]. Additional occupation/education comments: [employer]. Spiritual care concerns: No Meds Home Medications and Allergies Home Medications Medication Instructions Recorded Confirmed Type aspirin 81 mg tablet,delayed 81 mg PO DAILY #30 tabs 07/29/19 12/20/23 Rx release ibuprofen 600 mg tablet 600 mg PO Q6H PRN Pain 11/21/22 12/20/23 History hydrochlorothiazide 25 mg tablet 25 mg PO DAILY #90 tabs 12/04/23 12/20/23 Rx oxybutynin chloride 5 mg 5 mg PO DAILY 12/20/23 12/20/23 History tablet,extended release 24 hr Allergies Allergy/AdvReac Type Severity Reaction Status Date / Time latex Allergy Mild LATEX Verified 12/04/23 09:35 POWDER: ITCHING/REDNESS/BLISTERS amlodipine AdvReac Unknown headaches, Verified 12/04/23 09:35 SOB Vital Signs Vital Signs - 24 hr 12/20/23 13:51 12/20/23 14:01 12/20/23 14:21 Temperature Pulse Rate 54 L 61 63 Respiratory Rate 13 14 13 Blood Pressure 140/53 L 148/73 H 149/69 H Pulse Oximetry 100 100 100 Oxygen Delivery 12/20/23 14:31 12/20/23 15:00 12/20/23 15:11 Temperature Pulse Rate 63 78 74 Respiratory Rate 17 15 17 Blood Pressure 102/92 H 138/93 H 139/85 Pulse Oximetry 100 100 100 Oxygen Delivery 12/20/23 17:00 12/20/23 18:00 12/20/23 17:42 Temperature 36.5 C Pulse Rate 50 L 83 Respiratory Rate 16 18 Blood Pressure 154/87 H 150/69 H Pulse Oximetry 100 100 Oxygen Delivery Room Air 12/20/23 21:48 12/20/23 20:00 12/20/23 21:15 Temperature
[2023-12-22] VITALS (7 sets, daily range): BP systolic 118–137; BP diastolic 52–56; PULSE 43–69; RESP 16–20; TEMP 36.5–36.6; O2SAT 95–99
--- NOTE | 2023-12-22 | ECHO_ITS ---
Patient Info Name: Val Moscoso Age: 68 years : 1955 Gender: Female Ht: 67 in Wt: 255 lbs BSA: 2.39 m2 HR: 69 bpm BP: 137 / 56 mmHg Heart Rhythm: Sinus Rhythm Technical Quality: Fair Exam Date: 12/22/2023 11:03 AM Exam Location: Echo Lab Patient Status: Outpatient Admit Date: 12/20/2023 Staff Ordering Physician: Gail Soto PA-C [employer] Station Worker: Casey Ribeiro RDCS Attending Provider: Andi Harris MD Referring Physician: Brittany TOBIAS; Exam Type: CA echo doppler w bubble study Study Info Indications - HTN, TIA Complete two-dimensional, color flow and Doppler transthoracic echocardiogram is performed with contrast to opacify the left ventricle and to improve the deliniation of the left ventricle endocardial borders. Summary 1. Definity contrast utilized to improve image quality. 2. Normal left ventricular size and vigorous systolic function. 3. Very small amount of aortic and tricuspid regurgitation. 4. Agitated saline contrast injection demonstrated no shunt. 5. Sinus rhythm. Left Ventricle Left ventricular chamber dimension is normal. Left ventricular systolic function is normal, estimated at 65-70%. The left ventricular diastolic function is grade I diastolic dysfunction. Right Ventricle Right ventricular chamber dimension is normal. Left Atria Left atrial chamber dimension is normal. Right Atria Right atrial chamber dimension is normal. Atrial Septum Intact interatrial septum visualized by agitated saline imaging. Aortic Valve The aortic valve is trileaflet. There is mild aortic valve sclerosis. There is trace aortic valve regurgitation. Pulmonic Valve The pulmonic valve is normal. Mitral Valve The mitral valve has normal leaflets. Tricuspid Valve The tricuspid valve leaflets are normal. There is trace tricuspid valve regurgitation. Pericardium/Pleural The pericardium appears normal. Aorta The aortic root size at the sinus of Valsalva is normal. Left Ventricular Outflow Tract Name Value Normal LVOT 2D LVOT Diameter 1.8 cm LVOT Doppler LVOT Peak Gradient 8 mmHg LVOT Mean Gradient 5 mmHg LVOT VTI 33 cm LVOT VTI/AV VTI Ratio 1.1 LVOT Stroke Volume 81 ml LVOT CO 4.5 l/min LVOT CI 1.9 l/min/m2 Pulmonic Valve Name Value Normal PV Doppler PV Peak Gradient 7 mmHg Mitral Valve Name Value Normal MV Doppler MV Decel [place] 655 cm/s2 MV PHT 38 ms MV Area (P
--- NOTE | 2023-12-22 08:15 | PM.IMPN ---
Progress Note: A&P Assessment and Plan (1) Arm paresthesia, left: Code(s): R20.2 - Paresthesia of skin Status: Acute (2) Transient speech disturbance: Code(s): R47.9 - Unspecified speech disturbances Status: Acute (3) Essential hypertension: Code(s): I10 - Essential (primary) hypertension Status: Acute (4) Low erythrocyte mean corpuscular volume: Code(s): R71.8 - Other abnormality of red blood cells Status: Acute Plan TIA vs acute Stroke The patient presented to the emergency department for evaluation of left upper extremity paresthesias and transient slurred and stuttering possibel TIA, CVA, and need to rule out cervical radiculopathy and musculoskeletal in etiology as she did complain of pain in the left neck and arm earlier today but that does not explain her speech disturbances Tobias MRI:Highly suggestive acute lacunar infarct in the left inferior estelle pending echocardiogram with bubble study. Continue aspirin and check lipid panels in a.m c/w tele monitor Neurology has been consulted and their input is appreciated. Continue aspirin 81 mg daily p.o., Plavix 75 mg daily p.o. Essential hypertension Blood pressure controlled Subjective Date/time seen: 12/22/23 08:15 Interval history: I saw examined patient today, patient denies focal weakness, dizziness, headache, vision change, slurred speech has resolved, patient is afebrile blood pressure stable Exam Narrative: GENERAL: Pleasant, in no acute distress. Well-nourished. - EYES: EOMI. Anicteric. - HENT: Moist mucous membranes. - LUNGS: Clear to auscultation bilaterally, no wheezing, rhonchi, or rales. - CARDIOVASCULAR: Regular rate and rhythm. No murmur. No JVD. - ABDOMEN: Soft, non-tender and non-distended. No palpable masses. - EXTREMITIES: No edema. Peripheral pulses 2+. Non-tender. - NEUROLOGIC: No focal neurological deficits. CN II-XII grossly intact. - PSYCHIATRIC: Awake, Alert and oriented x 3. Appropriate mood and affect. - SKIN: No rashes or lesions. Warm. - LYMPH: No cervical lymphadenopathy. Objective Data Vital Signs Vital Signs: Vital Signs - 24 hr 12/21/23 08:30 12/21/23 12:00 12/21/23 14:00 Temperature 97.7 F Pulse Rate 53 L 68 Respiratory Rate 16 Blood Pressure 128/60 Pulse Oximetry 97 Oxygen Delivery Room Air 12/21/23 16:00 12/21/23 21:17 12/21/23 20:00 Temperature 98.1 F Pulse Rate 49 L 67 76 Respiratory Rate 18 Blood Pressure 144/53 H Pulse Oximetry 97 Oxygen Delivery 12/21/23 20:58 12/22/23 00:04 12/22/23 04:00 Temperature Pulse Rate 43 L 57 L Respiratory Rate Blood Pressure Pulse Oximetry Oxygen Delivery Room Air 12/22/23 06:00 12/22/23 08:00 Temperature 97.8 F Pulse Rate 69 51 L Respiratory Rate 20 Blood Pressure 137/56 L Pulse Oximetry 99 Oxygen Delivery Intake/Output Intake/Output: Intake & Output 12/19/23 12/20/23 12/21/23 12/22/23 23:59 23:59 23:59 23:59 Intake Total 1000 660 150 Output Total 800 500 Balance 1000 -140 -350 Meds/Results Medications: Active Medications Generic Name Dose Route Start Last Admin Trade Name Freq PRN Reason Stop Dose Admin Acetaminophen 650 mg 12/20/23 18:10 12/20/23 18:35 Acetaminophen 325 Mg Tablet PO 650 mg Q6H PRN Administration Mild Pain (1-3) or Fever Hydrocodone Bitart/Acetaminophen 1 tab 12/20/23 18:10 Hydrocodone/Acetaminophen (*Crx) 5-325 Mg Tablet PO Q6H PRN Pain Rated 4-6 Aspirin 81 mg 12/21/23 09:00 12/21/23 08:34 Aspirin 81 Mg Enteric Tablet PO 81 mg DAILY SHAHRAM Administration Clopidogrel Bisulfate 75 mg 12/21/23 09:00 12/21/23 08:35 Clopidogrel Bisulfate 75 Mg Tablet PO 75 mg QAM SHAHRAM Administration Hydrochlorothiazide 25 mg 12/21/23 09:00 12/21/23 08:35 Hydrochlorothiazide 25 Mg Tablet PO 25 mg DAILY SHAHRAM Administration Lorazepam 0.5 mg 12/22/23 08:13 L
[2023-12-22] MEDS: LORazepam INJ (*CRX) 2 MG/ML VIAL 0.5 MG IV PUSH (08:27)
[2023-12-22] MEDS: ASPIRIN 81 MG ENTERIC TABLET PO (08:30)
[2023-12-22] MEDS: hydroCHLOROthiazide 25 MG TABLET PO (08:30)
[2023-12-22] MEDS: oxyBUTYnin CHLORIDE XL 5 MG TAB.ER.24 PO (08:30)
[2023-12-22] MEDS: CLOPIDOGREL BISULFATE 75 MG TABLET PO (08:30)
--- NOTE | 2023-12-22 11:52 | WPDNEUROPN ---
Progress Note: A&P Assessment and Plan (1) Arm paresthesia, left: Code(s): R20.2 - Paresthesia of skin Status: Acute Assessment and Plan: with regard to the paresthesias in the left upper limb the differential diagnosis would be cerebrovascular disease and a peripheral neurologic etiology were considered. MRI of the brain was essentially normal except there was some question of a ischemic lesion in the left lower estelle. I have reviewed the films but I am not convinced about this. MRI of the cervical spine shows moderate degenerative changes however no disc herniation to the left compared to the right side was noted. Also she does not have any weakness in the left hand. Symptoms were completely resolved. I would suggest to keep her on antiplatelets in possibly low-dose statin for now follow-up if the symptoms recur otherwise he can follow with primary care provider. I have given her my phone number to call if symptoms recur. (2) Morbid obesity with body mass index (BMI) of 40.0 or higher: Code(s): E66.01 - Morbid (severe) obesity due to excess calories Status: Acute Plan Please see discussion above with regard to the differential diagnosis and management plan. Subjective Date/time seen: 12/22/23 11:52 Interval history: Patient was admitted with the onset of numbness in the left arm. She in fact had some feeling from the shoulder down to her arm mostly up to the elbow. She lost her 9 days ago. He had a something happened suddenly while he was in treatment for dialysis. The patient is still trying to cope with this loss. I noted that her MRI of the brain raise possibility of a left pontine stroke. I have reviewed the films and I doubt this to be a stroke but this certainly cannot be completely ruled out. CT angiogram of the head and neck did not show any significant abnormality. Patient does have history of right breast cancer for which she had surgery. Her B12 level was found to be slightly low at 279 and LDL was 69. He is currently on aspirin and Plavix. Review of Systems Review of Systems: All systems reviewed & are unremarkable except as noted in HPI and below Exam Narrative: Fully conscious alert oriented to self time place and person. Speech is fluent and articulate. No aphasia or dysarthria. Examination head and neck was unremarkable. Cranial nerves in your testing intact. Motor system normal power and tone in both upper and lower limbs. No pronator drift. Deep tendon reflexes did not show any asymmetry. No involuntary movements are seen. Sensory is unremarkable. Patient able to ambulate independently. Objective Data Vital Signs Vital Signs: Vital Signs - 24 hr 12/21/23 12:00 12/21/23 14:00 12/21/23 16:00 Temperature 36.5 C Pulse Rate 53 L 68 49 L Respiratory Rate 16 Blood Pressure 128/60 Pulse Oximetry 97 Oxygen Delivery 12/21/23 21:17 12/21/23 20:00 12/21/23 20:58 Temperature 36.7 C Pulse Rate 67 76 Respiratory Rate 18 Blood Pressure 144/53 H Pulse Oximetry 97 Oxygen Delivery Room Air 12/22/23 00:04 12/22/23 04:00 12/22/23 06:00 Temperature 36.6 C Pulse Rate 43 L 57 L 69 Respiratory Rate 20 Blood Pressure 137/56 L Pulse Oximetry 99 Oxygen Delivery 12/22/23 08:00 12/22/23 08:30 Temperature Pulse Rate 51 L Respiratory Rate Blood Pressure Pulse Oximetry Oxygen Delivery Room Air Intake/Output Intake/Output: Intake & Output 12/19/23 12/20/23 12/21/23 12/22/23 23:59 23:59 23:59 23:59 Intake Total 1000 660 390 Output Total 800 500 Balance 1000 -140 -110 Meds/Results Medications: Active Medications Generic Name Dose Route Start Last Admin Trade Name Freq PRN Reason Stop Dose Admin Acetaminophen 650 mg 12/20/23 18:10 12/20/23 18:35 Acetaminophen 325 Mg Tablet PO 650 mg Q6H PRN Administration Mild Pain (1-3) or Fever Hydrocodone Bitart/Acetaminop
--- NOTE | 2023-12-22 17:18 | PM.DS ---
DS: Admitting Diagnosis Discharge Date 12/21 Admitting Diagnosis (1) Arm paresthesia, left: Code(s): R20.2 - Paresthesia of skin Status: Acute DS: Discharge Diagnosis Discharge Diagnosis (1) Arm paresthesia, left: Code(s): R20.2 - Paresthesia of skin Status: Acute (2) Transient speech disturbance: Code(s): R47.9 - Unspecified speech disturbances Status: Acute (3) Essential hypertension: Code(s): I10 - Essential (primary) hypertension Status: Acute (4) Low erythrocyte mean corpuscular volume: Code(s): R71.8 - Other abnormality of red blood cells Status: Acute DS: Summary Hospital Course Hospital Course: Per H&P, this is a very pleasant 68-year-old female with history of transient ischemic attack, hypertension, overactive bladder, and arthritis who presented to the emergency department for evaluation of left arm numbness and tingling. The patient provides the following history. The patient's little over a week ago and she has not been sleeping well. At about 02:00 in the morning she was watching television when she developed fairly sudden onset of numbness and tingling in the left arm radiating down to the fingertips. She also noticed some stuttering and difficulty speaking while talking on the phone with a family member several hours thereafter. Due to ongoing symptoms he decided to come in for evaluation. The following med issues have been addressed during hospitalization acute Stroke The patient presented to the emergency department for evaluation of left upper extremity paresthesias and transient slurred and stuttering possibel TIA, CVA, and need to rule out cervical radiculopathy and musculoskeletal in etiology as she did complain of pain in the left neck and arm earlier today but that does not explain her speech disturbances Tobias MRI:Highly suggestive acute lacunar infarct in the left inferior estelle echocardiogram with bubble study 1. Definity contrast utilized to improve image quality. 2. Normal left ventricular size and vigorous systolic function. 3. Very small amount of aortic and tricuspid regurgitation. 4. Agitated saline contrast injection demonstrated no shunt. 5. Sinus rhythm. c/w tele monitor, patient does not have significant cardiac arrhythmia Neurology has been consulted and their input is appreciated. Continue aspirin 81 mg daily p.o., Plavix 75 mg daily p.o. per neurologist recommendation Essential hypertension Blood pressure controlled Hospital course uneventful, patient condition was stable on discharge Time Spent with Patient Time attestation: Total time spent providing and/or coordinating discharge services: Exam Narrative: GENERAL: Pleasant, in no acute distress. Well-nourished. - EYES: EOMI. Anicteric. - HENT: Moist mucous membranes. - LUNGS: Clear to auscultation bilaterally, no wheezing, rhonchi, or rales. - CARDIOVASCULAR: Regular rate and rhythm. No murmur. No JVD. - ABDOMEN: Soft, non-tender and non-distended. No palpable masses. - EXTREMITIES: No edema. Peripheral pulses 2+. Non-tender. - NEUROLOGIC: No focal neurological deficits. CN II-XII grossly intact. - PSYCHIATRIC: Awake, Alert and oriented x 3. Appropriate mood and affect. - SKIN: No rashes or lesions. Warm. - LYMPH: No cervical lymphadenopathy. Discharge Plan Discharge Attending physician on discharge: Alessandro Cardenas Consulting providers: Martinez Dunaway; Gail Soto; Mohan Zhao; Mamadou Perla; Jose Hernandez; Jose Torres; Roberto Rod; Avery Cornelius Discharging Clinician: Alessandro Cardenas Anticipated Discharge Date/Time: 12/22/23 17:20 Patient Disposition: Home, Self-Care Activity: as tolerated Diet: as tolerated and heart healthy Patient Instructions: Self Care Measures After a Stroke (DC) Stand Alone Forms: General Discharge Information Follow-up/Referrals: Cecile Stark
== END 2023-12-22 18:01 | disposition home or self-care (01) ==
LOC: ANHED 16:06 → ANH2MED 12-22 17:22
PROVIDERS: Physician Assistant; Admitting Provider Internal Medicine; Emergency Provider Student in an Organized Health Care Education/Training Program; PCP Family Medicine; Visit Provider Hospitalist
DX: R20.2 Paresthesia of skin (principal); R47.9 Unspecified speech disturbances; R71.8 Other abnormality of red blood cells; I10 Essential (primary) hypertension; N32.81 Overactive bladder; Z85.3 Personal history of malignant neoplasm of breast; Z86.73 Personal history of transient ischemic attack (TIA), and cerebral infarction without residual deficits; Z79.82 Long term (current) use of aspirin; Z79.51 Long term (current) use of inhaled steroids; E66.01 Morbid (severe) obesity due to excess calories; Z68.41 Body mass index [BMI] 40.0-44.9, adult
CPT/HCPCS: 36415; 70450; 70496; 70498; 70551; 71045; 72141; 73030; 80048; 80053; 80061; 82607; 82728; 82746; 83540; 83550; 83735; 84443; 84484; 85025; 85027; 85610; 85730; 93005; 93306; 96361; 96374; 96375; 96376; 99285; A9270; G0378; J2060; J7030; Q9967

== ENCOUNTER 2024-12-01 09:11 | Outpatient (CLI) | payer MEDICARE, SELFPAY ==
--- NOTE | 2024-12-22 12:00 | P.SLEEP_ITS ---
Sleep Study Date of Study: 12/01/24 Ordering Provider: ANGEL Pablo Interpreting Physician: Rachel Good MD Sleep Study Type: Split Polysomnogram Height: 1.73 m Weight: 73.482 kg Body Mass Index: 24.6 Neck Circumference (inches): 14.25 [place]: 7 Reason for Sleep Study Loud snoring, non restorative sleep Sleep History Val Moscoso is a 69-year-old woman with loud snoring for over a year. Her snoring is so loud that sometimes she sounds like she is wheezing. She has tried [id number] medications without improvement. She occasionally awakens from sleep short of breath. She occasionally wakes at night with heartburn, belching or coughing.??She frequently snores, and frequently snores loudly enough that others complain. She occasionally has trouble sleeping when she has a cold. She rarely wakes up gasping for breath during the night. She occasionally has breathing problems at night. She rarely sweats excessively at night. She rarely notices her heart pounding or beating irregularly during the night. She rarely falls asleep during the day. She rarely falls asleep involuntarily, never falls asleep while driving. She never experiences loss of muscle tone with strong emotion. She never feels paralyzed on waking or falling asleep. She never experiences vivid dreams upon waking or falling asleep. She never feels afraid of going to sleep. She never has nightmares. She rarely reca lls her dreams. She rarely has thoughts racing through her mind. She occasionally feels sad, depressed, or anxious. She rarely notices parts of her body jerk. She never kicks during the night. She rarely feels crawling or aching feelings in her legs. She rarely feels leg pain at night. She never has morning jaw pain, and never grinds her teeth at night. She occasionally feels bothered by pain during the day, is rarely awakened by pain during the night. She rarely wakes up feeling stiff in the morning, rarely wakes feeling sore or achy in the morning. She never awakens with pain in her neck, spine, or joints. she has memory problems and headaches. Normal bedtime is 9:00 p.m., falling asleep within 2-3 hours, waking 3 times during the night. While awake, she watches television or listens to music. She awakens at 3:00 a.m.. On weekends, her bedtime may be earlier, 8:00 p.m., still awakens at 3:00 a.m.. She says that sometimes she just cannot sleep. She reports getting an average of 3 hours of sleep at night. She takes naps in the afternoon or evening. A short nap lasting 10-15 minutes may be refreshing. She feels better in the afternoon compared to other times of day. She reports no change in weight in the last year. Habits:??Tobacco: never smoker Caffeine: 1 serving per day Alcohol: none Recreational substances: none PMFSH Past Medical History Medical History Arthritis Cancer of right breast Overactive bladder Colon polyp Essential hypertension Surgical History Surgical History (Updated 12/24/24 @ 13:01 by Rachel Good MD) History of hysterectomy History of colonoscopy with polypectomy History of right mastectomy History of colonoscopy History of mastectomy Family History Family History Mother Family history of osteoarthritis Father Family history of osteoarthritis Hypertension Other Diabetes mellitus Social History Social History Social History: Surrogate medical decision maker: Cain Obrien, nishaw. Code status: Full code. Smoking status: Never smoker Second hand tobacco smoke exposure: No Alcohol intake: current Drinks per week: 2 Substance use: never Substance use type: does not use Do You Feel Safe in your Home?: Yes Lack of Transportation: No Lack of Food: Never True Current Housing: I Have Housing Concerned About Future Housing: No Difficulty Paying Gas/Electric Bills: No Difficulty Paying for Meds: No Currently Unemployed: No Education: High School Diploma/GED Difficulty w/ Childcare or Family Care: No Additional living arrangements comments: as of November 2023. Lives in [place]. Additional occupation/education comments: [employer]. Spiritual care concerns: No Medications Home Medications ?Medication ?Instructions ?Recorded ?Confirmed ?Type aspirin 81 mg tablet,delayed 81 mg PO DAILY #30 tabs 07/29/19 12/24/24 Rx release atorvastatin 10 mg tablet 10 mg PO DAILY #100 tabs 03/23/24 12/24/24 Rx clonazepam 0.5 mg tablet 0.5 mg PO QPM PRN anxiety #30 tabs 06/10/24 12/24/24 Rx clopidogrel 75 mg tablet 75 mg PO QAM #90 tabs 12/24/24 12/24/24 Rx hydrochlorothiazide 25 mg tablet 25 mg PO DAILY #90 tabs 12/24/24 12/24/24 Rx oxybutynin chloride 5 mg 5 mg PO DAILY #30 tabs 12/24/24 12/24/24 Rx tablet,extended release 24 hr Sleep Procedure A split night polysomnogram using the ACSIAN multi-channel system recorded the standard physiologic parameters including EEG, EOG, submentalis EMG, anterior tibialis EMG, EKG, body position, nasal and oral airflow using nasal pressure sensor and thermistor. Respiratory parameters of chest and abdominal movements were recorded with Respiratory Inductance Plethysmography belts. Oxygen saturation was recorded by pulse oximetry. Video monitoring was also performed. Sleep stages, periodic limb movements, and EEG arousals were scored in 30 second epochs according to the criteria of the AASM Scoring Manual. The Apnea-Hypopnea Index was calculated using CMS guidelines for definition of hypopnea while scoring respiratory events. Patient self administered eszopiclone 2 mg at the beginning of the study. After the baseline portion the patient met criteria for a titration with an AHI of 36 and desaturation to 82%. She used a small ResMed AirFit N30 I nasal mask with heated humidity, initial pressure was CPAP 5, titrated per protocol his CPAP 7 cm, final pressure was CPAP 9 cm. At CPAP 9 cm, the patient spent 55 minutes in bed, 11.5 minutes awake, 33.5 minutes in non-REM and 10 minute in REM. The sleep efficiency was 79.1%. The residual apnea-hypopnea index was 5.5 and the minimum saturation was 89%. REM occurred in the supine position. Sleep remained very fragmented throughout the entire night. Sleep Architecture During the diagnostic portion of the study, the total recording time was 160.5 minutes. The total sleep time was 135.0 minutes. Sleep latency was 4.5 minutes. REM latency was 118.5 minutes. Sleep Efficiency was 84.1%. The patient had 31 awakenings for an awakening index of 13.8. Wake after sleep onset time was 21.0 minutes. The patient spent 30.5 minutes, 22.6% of total sleep time in Stage N1. The patient spent 85.0 minutes, 63.0% in Stage N2. The patient spent 2.0 minutes, 1.5% in Stage N3. The patient spent 17.5 minutes, 13.0% in Stage REM sleep. At 12:57:57 AM the patient was placed on PAP treatment and was titrated at pressures ranging from 5 cm, 7 cm and final pressure 9 cm. During the treatment portion of the study, the total recording time was 314.9 minutes. The total sleep time was 255.5 minutes. Sleep latency was 1.5 minutes. REM latency was 52.0 minutes. Sleep Efficiency was 81.1%. Wake after Sleep Onset time was 57.5 minutes. The patient spent 41.0 minutes, 16.0% of total sleep time in Stage N1. The patient spent 163.5 minutes, 64.0% in Stage N2. The patient spent 0.5 minutes, 0.2% in Stage N3. The patient spent 50.5 minutes, 19.8% in Stage REM. Respiratory Analysis During the diagnostic portion of the study, the patient had 79 hypopneas, 2 obstructive apneas, no mixed apneas, and no central apneas for an overall Apnea Hypopnea Index of 36.0 events per hour. The REM Apnea Hypopnea Index was 61.7. The NREM Apnea Hypopnea Index was 32.2. The patient had a Central Apnea Hypopnea Index of 0. There were no Respiratory Effort Related Arousals.The Respiratory Disturbance Index is 37.8 events per hour. There was no evidence of Humberto- Gunn Respirations. During the treatment portion of the study, the patient had 9 hypopneas, no obstructive apneas, 1 mixed apnea, and 1 central apnea for an overall Apnea Hypopnea Index of 2.6 events per hour. The REM Apnea Hypopnea Index was 8.3. The NREM Apnea Hypopnea Index was 1.2. The patient had a Central Apnea Hypopnea Index of 0.2. There were no Respiratory Effort Related Arousals. The Respiratory Disturbance Index is 5.4 events per hour. There was no evidence of Humberto-Gunn Respirations. Arousals During the diagnostic portion of the study, there were a total of 46 arousals for an arousal index of 20.4. There were 22 respiratory arousals for an index of 9.8. There were no periodic limb movement arousals. There were 3 isolated limb movement arousals for an index of 1.3. There were 21 spontaneous arousals for an index of 9.3. During the treatment portion of the study, there were a total of 64 arousals for an index of 15.0. There were 4 respiratory arousals for an index of 0.9. There were 4 periodic limb movement arousals for an index of 0.9. There were 7 isolated limb movement arousals for an index of 1.6. There were 50 spontaneous arousals for an index of 11.7. Periodic Limb Movements During the diagnostic portion of the study, the patient had 10 isolated limb movements with an index of 4.4. The patient had no periodic limb movements. The patient had a total of 10 limb movements with a total limb movement index of 4.4. During the treatment portion of the study, the patient had 22 isolated limb movements with an index of 5.2. The patient had 104 periodic limb movements with an index of 24.4. The patient had a total of 126 limb movements with a total limb movement index of 29.6. Oximetry Data During the diagnostic portion of the study, the patient had an average oxygen saturation of 94% in wake with a minimum oxygen saturation of 82% and a maximum oxygen saturation of 100%. The patient had an average oxygen saturation of 93.5% in sleep with a minimum oxygen saturation of 82% and a maximum oxygen saturation of 99%. The patient had 124 oxygen desaturations resulting in an Oxygen Desaturation Index of 55.1. The patient spent 11.2 minutes, 7% of total sleep time with an oxygen saturation less than 88%. During the treatment portion of the study, the patient had an average oxygen saturation of 94.2% in wake with a minimum oxygen saturation of 83% and a maximum oxygen saturation of 99%. The patient had an average oxygen saturation of 930% in sleep with a minimum oxygen saturation of 870% and a maximum oxygen saturation of 97%. The patient had 43 oxygen desaturations resulting in an Oxygen Desaturation Index of 10.1. The patient spent 0.5 minutes, 0.2% of total sleep time with an oxygen saturation less than 88%. Snoring Profile Snoring was mild to moderate, eliminated during the titration. Cardiac Profile During the diagnostic portion of the study, the EKG showed normal sinus rhythm. The average pulse rate was 61.9 bpm. The minimum pulse rate was 49 bpm. The maximum pulse rate was 81 bpm. No arrhythmias noted. During the treatment portion of the study, the EKG showed normal sinus rhythm. The average pulse rate was 56.9 bpm. The minimum pulse rate was 44 bpm. The maximum pulse rate was 85 bpm. No arrhythmias noted. EEG Profile Unremarkable, no evidence of seizures. Assessment and Plan Assessment and Plan (1) Obstructive sleep apnea: Code(s): G47.33 - Obstructive sleep apnea (adult) (pediatric) Status: Acute Assessment and Plan: This split night sleep study on 12/01/2024 shows severe obstructive sleep apnea, the apnea-hypopnea index is 36 with desaturation 82% successfully treated using CPAP 9 cm water pressure and a small ResMed AirFit N30 I nasal mask with heated humidity. At CPAP 9 cm, the patient spent 55 minutes in bed, 11.5 minutes uzair ke, 33.5 minutes in non-REM and 10 minute in REM. The sleep efficiency was 79.1%. The residual apnea-hypopnea index was 5.5 and the minimum saturation was 89%. REM occurred in the supine position. Sleep remained very fragmented throughout the entire night. The patient should be prescribed this ResMed equipment as well as tubing, filters and reservoir. This should be used with all episodes of sleep. Compliance should be reviewed within 31-90 days of starting therapy for usage greater than 4 hours per night greater than 70% of the nights. The patient should be asked about symptoms such as excessive daytime sleepiness, quality of sleep, decreased nocturia, increased mental functioning such as memory, mood, and concentration. She would benefit from observing good sleep hygiene measure including having a fixed bedtime and wake time, using PAP with all episodes of sleep including naps, and limiting naps later in the day. Naps later in the day will make it difficult to fall asleep at night. She reports difficulty initiating sleep and only getting an average of 3 hours of sleep at night. If she awakens at night, she should not turn on the television. Light is a potent stimulus for wakefulness. If she awakens at night and cannot return to sleep within 20 minutes, she may consider leaving the bedroom, may listen to music, pray or meditate, or read a boring book with a soft light over her shoulder. Data The data obtained during this sleep study is adequate for interpretation. Certification This sleep study has been reviewed by a board certified sleep medicine physician.
[2024-12-24 12:53] VITALS: BMI 24.6
== END 2024-12-02 06:58 | disposition home or self-care (01) ==
LOC: ANHCSM 09:21
PROVIDERS: PCP Family Medicine; Visit Provider Physician Assistant
DX: G47.10 Hypersomnia, unspecified (principal); G47.33 Obstructive sleep apnea (adult) (pediatric)
CPT/HCPCS: 95811

== ENCOUNTER 2024-12-24 08:47 | Outpatient (CLI) | payer MEDICARE, SELFPAY ==
[2024-12-24 09:19] LABS: Hematocrit 39.5 % (37.0-47.0); Hemoglobin 12.1 g/dL (12.0-15.0); Immature Granulocyte Percent A 0.2 % (0-0.5); Lymphocytes Absolute Auto 1.66 K/mm3 (0.9-3.2); Mean Corpuscular HGB Conc 30.6 g/dl (32-36); Mean Corpuscular Hemoglobin 22.3 pg (26-34); Mean Corpuscular Volume 72.7 fl (80-100); Nucleated Red Blood Cells Absolute Auto 0.000 K/mm3 (0.0-0.012); Nucleated Red Blood Cells Perc 0.0 % (0.0-0.2); Platelet Count Result 259 k/mm3 (150-375); Red Blood Count 5.43 M/mm3 (4.2-5.4); White Blood Count 5.4 K/mm3 (4.5-10.0)
[2024-12-24 09:41] LABS: Alanine Aminotransferase 14 U/L (6-35); Albumin Level 4.0 g/dL (3.5-5.1); Alkaline Phosphatase 64 U/L (38-126); Anion Gap 4 mmol/L (4-12); Aspartate Amino Transferase 28 U/L (14-36); Bilirubin,Total 0.6 mg/dL (0.2-1.3); Blood Urea Nitrogen 23 mg/dL (7-17); Calcium 9.1 mg/dL (8.4-10.2); Carbon Dioxide 29 mmol/L (22-30); Chloride 100 mmol/L (98-107); Cholesterol 215 mg/dL (0-200); Estimated Glomerular Filt Rate > 60; Glucose 92 mg/dL (65-110); HDL Direct 70 mg/dL; Potassium 3.7 mmol/L (3.4-5.0); Sodium 133 mmol/L (137-145); Total Protein 7.4 g/dL (6.3-8.2); Triglycerides 61 mg/dL (<150)
[2024-12-24 09:49] LABS: Burr Cells 1+; Hypochromasia 1+; Microcytosis 1+ (NORMAL); Ovalocytes 1+; Schistocytes None Seen
[2024-12-24 10:11] LABS: Thyroid Stimulating Hormone Reflex 2.080 uIU/mL (0.465-4.68)
== END 2024-12-24 08:48 | disposition home or self-care (01) ==
LOC: ANHLAB 08:51
PROVIDERS: PCP Family Medicine
DX: I10 Essential (primary) hypertension (principal); E66.01 Morbid (severe) obesity due to excess calories
CPT/HCPCS: 36415; 80053; 80061; 84443; 85025